=== PATIENT | male | born 1970 | race Caucasian/White ===

== ENCOUNTER 2018-03-01 05:51 | Inpatient (IN) ==
[2018-03-01] MEDS ORDERED: ceFAZolin 1 GM VIAL IV SCH (07:00)
[2018-03-01] MEDS ORDERED: 0.9 % SODIUM CHLORIDE 9 ML, KETOROLAC 30 MG, ROPIVACAINE HCL/PF 49.5 ML, EPINEPHrine 0.... IJ SCH (07:00)
[2018-03-01] MEDS ORDERED: ROPIVACAINE HCL/PF 20 ML VIAL IJ ONE (07:50)
[2018-03-01] MEDS ORDERED: PROPOFOL 200 MG/20 ML VIAL IV ONE (07:50)
[2018-03-01] MEDS ORDERED: MIDAZOLAM 5 MG/5 ML VIAL IV ONE (07:50)
[2018-03-01] MEDS ORDERED: DEXAMETHASONE 10 MG/ML VIAL IV ONE (07:50)
[2018-03-01] MEDS ORDERED: ONDANSETRON 4 MG/2 ML VIAL IV ONE (07:50)
[2018-03-01] MEDS ORDERED: LIDOCAINE HCL/PF 100 MG/5 ML SYRINGE IV ONE (07:50)
[2018-03-01] MEDS ORDERED: ePHEDrine 50 MG/ML AMPUL IV ONE (07:50)
[2018-03-01] MEDS ORDERED: TRANEXAMIC ACID 1,000 MG/10 ML VIAL IV ONE ×2 (07:50→10:26)
[2018-03-01] MEDS ORDERED: fentaNYL 250 MCG/5 ML VIAL IV ONE (07:50)
[2018-03-01] MEDS ORDERED: GLYCOPYRROLATE 0.2 MG/ML VIAL IV ONE (07:50)
[2018-03-01] MEDS ORDERED: GENTAMICIN SULFATE 800 MG/20 ML VIAL IR ONE (08:28)
[2018-03-01] MEDS ORDERED: FLUMAZENIL 0.1 MG/ML ML IV PRN (08:56)
[2018-03-01] MEDS ORDERED: ONDANSETRON 4 MG/2 ML VIAL IV PRN (08:56)
[2018-03-01] MEDS ORDERED: ACETAMINOPHEN 1,000 MG/100 ML BOTTLE IV ONE (08:56)
[2018-03-01] MEDS ORDERED: PROMETHAZINE 25 MG/ML VIAL IV PRN (08:56)
[2018-03-01] MEDS ORDERED: NALOXONE HCL 0.4 MG/ML VIAL IV PRN (08:56)
[2018-03-01] MEDS ORDERED: LACTATED RINGERS 250 ML IV PRN (08:56)
[2018-03-01] MEDS ORDERED: diphenhydrAMINE 50 MG/ML VIAL IV PRN (08:56)
[2018-03-01] MEDS ORDERED: MEPERIDINE 25 MG/ML SYRINGE IV PRN (08:56)
[2018-03-01] MEDS ORDERED: BENZOCAINE/MENTHOL 1 LOZENGE PO PRN ×2 (08:56→10:26)
[2018-03-01] MEDS ORDERED: IPRATROPIUM/ALBUTEROL 3 ML AMPUL.NEB NEB PRN (08:56)
[2018-03-01] MEDS ORDERED: LACTATED RINGERS 1,000 ML IV SCH (09:00)
[2018-03-01] MEDS ORDERED: FLEETS ADULT ENEMA PR PRN (10:26)
[2018-03-01] MEDS ORDERED: POLYETHYLENE GLYCOL 3350 17 GM PACKET PO PRN (10:26)
[2018-03-01] MEDS ORDERED: BISACODYL 10 MG SUPP.RECT PR PRN (10:26)
[2018-03-01] MEDS ORDERED: MAGNESIUM HYDROXIDE 30 ML ORAL.SUSP PO PRN (10:26)
[2018-03-01] MEDS ORDERED: HYDROcodone/APAP 10/325MG TABLET PO PRN (10:29)
[2018-03-01] MEDS: fentaNYL 100 MCG/2 ML VIAL IV PRN ×3 (10:33→10:50)
--- NOTE | 2018-03-01 10:33 | Brief Operative Note ---
Date of procedure: 03/01/18 Pre-op diagnosis: DJD right knee Post-op diagnosis: same Procedure: TKR right Grafts/Implants: Yes (Yadav and nephew XR ) Anesthesia: GETA Surgeon: Desean Taveras Equipment Service Engineer: Johnny Hayward Estimated blood loss (cc): 100 Tourniquet Time (Minutes): 85 Specimens Removed/Pathology: none sent Condition: stable Disposition: PACU
[2018-03-01] MEDS: HYDROmorphone 2 MG/ML VIAL IV PRN ×2 (11:00→11:16)
--- NOTE | 2018-03-01 11:04 | Operative Note ---
DATE OF OPERATION: 03/01/2018 PREOPERATIVE DIAGNOSIS: Degenerative joint disease of the right knee. POSTOPERATIVE DIAGNOSIS: Degenerative joint disease of the right knee. OPERATION: Right total knee replacement. SURGEON: Desean Taveras M.D. MIND READER: Lencho Hayward R.N. ANESTHESIA: General done by Liam Frey CRNA. TOURNIQUET TIME: 85 minutes. SUMMARY OF PROCEDURE: General anesthesia was attained. The right leg was prepped and draped. An incision was made from the quadriceps tendon to the tibial tubercle. This was taken down sharply to the quadriceps and medial retinaculum. A midvastus approach was used. This was done about 1-inch above the patella where I split the vastus for about an inch diagonally. The quadriceps was split distal as was the medial retinaculum. A medial release was done. The anterior menisci resected. The fat pad was debrided. The ACL was preserved. The knee was flexed. The intramedullary canal of the femur was drilled and then reamed. The distal cutting guide was placed. The distal femur was cut. The knee was brought into full extension. The marker on the tibia was used to sherri the level of the tibial cut. The femur was next sized. It sized to a 7. The anterior, posterior and bevel cuts were made. The tibia was next addressed. The external guide was used, and the cut was set to be 6 to 7 mm below the high point medially. The notch pins were used and the notch cutting guide was used. The notch area was preserved and the sagittal cuts were made. The medial cut was then made resecting the medial compartment of the tibia. The femoral trial was then placed onto the femur. I then placed an 8 mm insert and a 6 trial. We got excellent range of motion and stability with the 8 mm insert. The lateral cutting guide was then placed. The lateral cut was made. I next used the datum and the notch cutting guide to cut the notch area and preserve the ACL and the PCL. We then trialed the tibia and a 5 was the best fit while preserving the ACL. This was prepared with the guide system and appropriate broaches. The patella was everted. It was a 25 mm in thickness, and I cut down to 15. This was rechecked using a caliper. The patella sized to a 32. An eccentric anatomic patella was used. The excess bone which was minimal was removed with a saw laterally. Trials were placed. The no-touch test showed a lateral release was not needed. The bone surfaces were thoroughly irrigated. The knee was injected throughout with a multimodal solution. The components were next cemented in. Care was taken to protect the ACL while the cement hardened in extension. Excess cement was removed. The tourniquet was let down. All bleeding points were coagulated. The quadriceps and medial retinaculum were closed with [id number] sutures of #2 FiberWire. The distal retinaculum was closed with a running 0 Maxon. The subcutaneous tissue was closed with interrupted buried 2-0 Monocryl. The skin was closed with austen. A sterile compressive dressing was applied. The sponge and needle count was correct. The patient tolerated the procedure well and was taken to the recovery room in stable condition. TJF:elisa Job ID: [id number] Doc ID: [id number] Desean HENDERSON
[2018-03-01] MEDS: 0.9 % SODIUM CHLORIDE 1,000 ML IV SCH ×2 (12:08→19:43)
--- NOTE | 2018-03-01 12:30 | XRay Report ---
CLINICAL INFORMATION: Post-op total knee. COMPARISON: None. FINDINGS: Total knee prostheses is anatomically aligned. No osseous abnormalities. Periarticular gas and soft tissue swelling seen as expected IMPRESSION: Negative Interpreted and Authenticated by: Christiano Pineda 03/01/18
[2018-03-01] MEDS ORDERED: WARFARIN 7.5 MG TABLET PO SCH (14:00)
[2018-03-01] MEDS: 0.9 % SODIUM CHLORIDE 10 ML SYRINGE IV SCH ×2 (14:21→21:16)
[2018-03-01] MEDS: ONDANSETRON 4 MG/2 ML VIAL IV PRN ×2 (14:26→19:08)
[2018-03-01] MEDS: ceFAZolin 1 GM VIAL IV SCH ×2 (15:54→23:06)
[2018-03-01] MEDS ORDERED: oxyCODONE HCL 5 MG TABLET PO PRN (16:57)
[2018-03-01] MEDS: oxyCODONE/APAP 5/325MG TABLET PO PRN ×2 (19:48→21:58)
[2018-03-01] MEDS ORDERED: DOCUSATE SODIUM 100 MG CAPSULE PO SCH (21:00)
[2018-03-01] MEDS ORDERED: SENNOSIDES 1 TABLET PO SCH (21:00)
[2018-03-01] MEDS ORDERED: METOPROLOL TARTRATE 50 MG TABLET PO SCH (21:00)
[2018-03-01] MEDS ORDERED: ENOXAPARIN 30 MG/0.3 ML SYRINGE SQ SCH (21:00)
[2018-03-02] MEDS: oxyCODONE/APAP 5/325MG TABLET PO PRN ×2 (00:25→05:45)
[2018-03-02] MEDS: 0.9 % SODIUM CHLORIDE 10 ML SYRINGE IV SCH (04:31)
[2018-03-02] MEDS: 0.9 % SODIUM CHLORIDE 1,000 ML IV SCH (04:52)
[2018-03-02] MEDS ORDERED: OMEPRAZOLE 20 MG CAPSULE PO SCH (07:30)
[2018-03-02] MEDS ORDERED: ASPIRIN 81 MG TAB.CHEW CHEWED ONE ×2 (08:40→08:47)
[2018-03-02] MEDS ORDERED: NITROGLYCERIN 0.4 MG TAB.SUBL SL PRN ×2 (08:40→08:47)
[2018-03-02] MEDS ORDERED: 0.9 % SODIUM CHLORIDE 1,000 ML IV SCH (08:45)
--- NOTE | 2018-03-02 08:48 | Orthopedic Progress Note ---
Subjective Patient information: Note initiated : 03/02/18 at 8:44 am Service Date, if different from initiated Date: [] Patient: Miles Cuellar 47 y/o M admitted on 03/01/18 for Total Knee Arthroplasty - Right. Chief Complaint: [POD #1 s/p At present patient is having active heart attack at [facility]. 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 Dr. Benitez is on site and confirmed ST elevation on present EKG compared to preop EKG. During my bedside eval he was in no pain, had no chest pain or shortness of breath. He was up and ambulating with Alfie PT without difficulty. He had no numbness, tingling, chest pain or shortness of breath.] Objective Vital signs: Vital Signs Temp Pulse Resp BP Pulse Ox 03/02/18 06:42 97.6 F 20 107/64 93 03/02/18 04:00 97.8 F 68 20 114/68 92 03/01/18 23:10 97.6 F 75 18 109/72 95 03/01/18 21:12 98.9 F 91 H 18 120/78 95 03/01/18 14:24 129/69 92 03/01/18 13:22 103/65 95 03/01/18 12:52 115/74 97 03/01/18 12:22 116/79 97 03/01/18 12:07 115/84 97 03/01/18 11:52 118/82 97 03/01/18 11:29 97.0 F 70 14 118/81 97 03/01/18 11:20 97.0 F 73 16 122/84 98 03/01/18 11:00 97.0 F 78 18 124/89 98 03/01/18 10:46 97.0 F 68 18 126/84 98 03/01/18 10:41 97.6 F 66 16 119/86 98 03/01/18 10:36 97.5 F 78 14 114/82 98 03/01/18 10:31 97.4 F 76 16 132/85 97 03/01/18 10:26 97.5 F 87 18 179/94 98 03/01/18 10:21 97.3 F 94 H 14 132/96 94 Intake and Output 10/05/18 10/06/18 10/06/18 21:59 05:59 13:59 Intake Total 1400 / 1400 2225 / 2225 Output Total 1100 / 1100 1275 / 1275 Balance 300 / 300 950 / 950 Intake: IV 1000 / 1000 Sodium Chloride 0.9% 1,000 ml @ 1000 / 1000 100 mls/hr IV .Q10H SHRAVAN Rx#: [id number] Oral 1400 / 1400 1225 / 1225 Output: Void Amount 1100 / 1100 1275 / 1275 Other: Meal Dinner Percent of Meal Consumed 100% Feeding Ability Independent Urine Appearance Clear Clear Urine Color Bright Yellow Pale Urine Odor Normal Normal # Voids 1 Weight 242 lb Intake & Output: Intake & Output 03/01/18 03/02/18 03/02/18 21:59 05:59 13:59 Intake Total 1400 / 1400 2225 / 2225 Output Total 1100 / 1100 1275 / 1275 Balance 300 / 300 950 / 950 Weight 242 lb Intake: IV 1000 / 1000 Sodium Chloride 0.9% 1,000 ml @ 1000 / 1000 100 mls/hr IV .Q10H SHRAVAN Rx#: [id number] Oral 1400 / 1400 1225 / 1225 Output: Void Amount 1100 / 1100 1275 / 1275 Other: Meal Dinner Percent of Meal Consumed 100% Feeding Ability Independent Urine Appearance Clear Clear Urine Color Bright Yellow Pale Urine Odor Normal Normal # Voids 1 Incision: Yes healing, No draining, No red, No swollen, No inflamed, Yes clean and dry Incision clean and dry: Yes Dressing: Yes clean, Yes dry, Yes intact Weight bearing status: as tolerated Neurological exam IM: Yes alert, Yes oriented X3, Yes motor sensory intact, Yes neurovascular intact Extremities exam IM: No calf tenderness, Yes normal capillary refill, Yes Foot pink and warm, Yes neurovascular intact - Periperhal Pulses Peripheral pulses: 2+: dorsalis pedis (L), dorsalis pedis (R), posterior tibialis (L), posterior tibialis (R) - Labs CBC & BMP: 03/02/18 05:22 Labs: Orthopedic Labs 03/02/18 05:22 PT 13.4 INR 1.0 03/02/18 05:22 Hgb 12.7 L Hct 38.9 L Assessment and Plan (1) Knee osteoarthritis POD #1 s/p right TKA: -having active STEMI, being transferred to [facility] for immediate intervention -will finalize post op ortho orders to transfer with him Status: Acute
[2018-03-02] MEDS ORDERED: NITROGLYCERIN 0.4 MG TAB.SUBL SL ONE (08:49)
[2018-03-02] MEDS ORDERED: ASPIRIN 325 MG ENTERIC COATED TABLET PO ONE (08:50)
[2018-03-02] MEDS ORDERED: ASPIRIN 81 MG TAB.CHEW ONE (08:53)
--- NOTE | 2018-03-02 08:54 | Discharge Summary ---
Ortho Discharge - TKA - Patient Instructions Diet: Regular Diet Activity: weight bearing as tolerated Total Knee Protocol: For Total Knee: Start ROM LOIS with stationary bike or rocking chair. Work on gaining full extension of knee. Posterior dislocation precautions provided. Hip abductor strengthening and gait training instructions provided. Apply Cryocuff as instructed. Dressing Care: Aquacel Ag - leave on for 5 days - Problem Maintenance (1) Knee osteoarthritis Status: Acute - Follow Up Plan Follow Up Appointments: Desean Taveras MD [Physician] - (in 10-14 days) Disposition: Xfer Other Prognosis: Critical Overall status at discharge: other (STEMI at [facility], transferring to [facility]) - Orders For Discharge Prescriptions: Enoxaparin [Lovenox] 30 mg SQ BID #6 syringe oxyCODONE/APAP [Percocet 5-325 mg] 1 - 2 tab PO Q4HP PRN #50 tab PRN Reason: Pain Level 3-6 Additional Discharge Orders: Physical Therapy at Discharge - TKA Location: None Selected Walker Location: None Selected
[2018-03-02] MEDS ORDERED: NITROGLYCERIN/D5W 250 ML IV ONE (08:56)
[2018-03-02] MEDS ORDERED: METOPROLOL TARTRATE 5 MG/5 ML VIAL IV ONE (08:59)
[2018-03-02] MEDS ORDERED: LISINOPRIL 20 MG TABLET PO SCH (09:00)
[2018-03-02] MEDS ORDERED: HYDROCHLOROTHIAZIDE 25 MG TABLET PO SCH (09:00)
[2018-03-02] MEDS: METOPROLOL TARTRATE 5 MG/5 ML VIAL IV SCH ×3 (09:01→15:11)
[2018-03-02] MEDS ORDERED: HEPARIN 5,000 UNIT/ML VIAL IV ONE (09:01)
--- NOTE | 2018-03-02 09:01 | Discharge Summary ---
Providers - Providers Patient information: Note initiated : 03/02/18 at 8:59 am Service Date, if different from initiated Date: [] Patient: Miles Cuellar 47 y/o M admitted on 03/01/18 for Total Knee Arthroplasty - Right. Chief Complaint: [POD #1 s/p right TKA Having active STEMI in hospital this morning. Prior to event, patient was ambulating without difficulty or concern. Had no chest pain, shortness of breath , numbness or tingling. Hospitalist responding to code white- found to have active STEMI] Discharge date: 03/02/18 Hospitalization Hospital course: Patient was brought to OR yesterday for right TKA with Dr. Taveras on 03/01/18 which was without complication. He was admitted overnight for post operative management and care. This morning he began having a STEMI which Dr. Benitez responded to. He has a history of a mechanical valve. Dr. Benitez initiated the transfer to the mold tooler at [facility] for emergent intervention. Discharge diagnosis: knee osteoarthritis Secondary discharge diagnosis: STEMI Exam - Exam Incision healing: Yes Incision draining: No Incision red: No Incision swollen: No Incision inflamed: No Clean and dry: Yes Weight bearing status: as tolerated Ortho Discharge - TKA - Patient Instructions Diet: Regular Diet Activity: weight bearing as tolerated Total Knee Protocol: For Total Knee: Start ROM LOIS with stationary bike or rocking chair. Work on gaining full extension of knee. Posterior dislocation precautions provided. Hip abductor strengthening and gait training instructions provided. Apply Cryocuff as instructed. Dressing Care: Aquacel Ag - leave on for 5 days - Problem Maintenance (1) Knee osteoarthritis Status: Acute - Follow Up Plan Follow Up Appointments: Desean Taveras MD [Physician] - (in 10-14 days) Disposition: Xfer Other Prognosis: Critical Rehab Potential: Undetermined - Orders For Discharge Prescriptions: Enoxaparin [Lovenox] 30 mg SQ BID #6 syringe oxyCODONE/APAP [Percocet 5-325 mg] 1 - 2 tab PO Q4HP PRN #50 tab PRN Reason: Pain Level 3-6 Additional Discharge Orders: Physical Therapy at Discharge - TKA Location: None Selected Walker Location: None Selected Pending Studies Resuscitation Status Full Code Diet Regular Diet Start Sun 5 1257 Docusate Sodium (Colace) 100 mg PO BID SHRAVAN Last Admin: 03/01/18 21:15 Dose: 100 mg Enoxaparin Sodium (Lovenox) 30 mg SQ BID [facility] Last Admin: 03/01/18 21:15 Dose: 30 mg Sodium Chloride (Sodium Chloride 0.9%) 1,000 mls @ 100 mls/hr IV .Q10H [facility] Last Admin: 03/02/18 04:52 Dose: Infusion: 03/02/18 00:30 Dose: 0 mls/hr Admin: 03/01/18 19:43 Dose: Not Given Admin: 03/01/18 12:08 Dose: 100 mls/hr Metoprolol Tartrate (Lopressor) 100 mg PO BID [facility] Last Admin: 03/01/18 21:15 Dose: 100 mg Morphine Sulfate (Morphine) 0 mg IV Q1HP PRN PRN Reason: PAIN LEVEL > 6 Last Admin: 03/02/18 01:18 Dose: 4 mg Admin: 03/01/18 21:16 Dose: 4 mg Admin: 03/01/18 19:08 Dose: 4 mg Admin: 03/01/18 15:52 Dose: 4 mg Admin: 03/01/18 12:00 Dose: 4 mg Omeprazole (Prilosec) 20 mg PO ACB [facility] Last Admin: 03/02/18 08:05 Dose: 20 mg Ondansetron HCl (Zofran) 4 mg IV Q4HP PRN PRN Reason: Nausea And Vomiting Last Admin: 03/01/18 19:08 Dose: 4 mg Admin: 03/01/18 14:26 Dose: 4 mg Oxycodone/Acetaminophen (Percocet 5-325 Mg) 1 - 2 tab PO Q4HP PRN PRN Reason: PAIN LEVEL 3-6 Last Admin: 03/02/18 05:45 Dose: 1 tab Admin: 03/02/18 00:25 Dose: 1 tab Admin: 03/01/18 21:58 Dose: 1 tab Admin: 03/01/18 19:48 Dose: 1 tab Senna (Senokot) 2 tab PO HS [facility] Last Admin: 03/01/18 21:15 Dose: 2 tab Sodium Chloride (Saline Flush) 10 ml IV Q8 [facility] Last Admin: 03/02/18 04:31 Dose: 10 ml Admin: 03/01/18 21:16 Dose: Not Given Admin: 03/01/18 14:21 Dose: Not Given Warfarin Sodium (Coumadin) 7.5 mg PO Tiffany@1400 [facility] Last Admin: 03/01/18 14:20 Dose: 7.5 mg Shift Summary 03/02/18 04:44 Shift Summary by Yvan Kwon on RA. Dressing to right knee CDI. No complaints of numbness or tingling. Up w/SBA and FWW. Ambulated in halls and in room t/o night. Steady on feet. Voiding per urinal. IV to left FA SL. Hx of nausea and emesis after taking PO narcotics. No c/o nausea this shift, has been getting 1 percocet q2h, however this does not appear to be an adequate dose for pain control but pt refuses to take more than 1 pill at a time. 4mg IV morphine administered x3. Cryocuff on t/ o night. Refused foot pumps @ HS stating he could not sleep w/them on. Tolerated fine when awake. IS up to 4,000. at bedside t/o night. Uses call light frequently. Pleasant and cooperative w/cares. Initialized on 03/02/18 04:44 - END OF NOTE
[2018-03-02] MEDS ORDERED: HEPARIN/D5W 500 ML IV ONE (09:14)
[2018-03-02] MEDS ORDERED: HEPARIN/D5W 25,000 UNIT in PREMIX 1 BAG IV SCH (09:15)
--- NOTE | 2018-03-02 09:26 | Internal Medicine Consult Note ---
Medical - CN: HPI - Data of Consult Consult date: 03/02/18 Requesting Physician: Desean Taveras Primary Care Provider: Wade Meyer - Consult Narrative Reason for consult: Chest pain History of present illness: Mr. Cuellar is a 47 year old M with h/o Severe aortic stenosis, [facility]. The patient had a cardiac cath, which shows normal LAD, 30% lesion in LCA. The patient was admitted to the hospital by Dr Taveras, for Right total knee replacement which was done yesterday, 03/01/18, the patient was doing well untill this AM. She was seen on rounds by ortho and was doing well The patient this AM suddently started to complain about acute onset chest pain, very severe, radiating down his ARM<, the patient was in visible distress and a code white/ Rapid response was called in, this is how I was involved in the case. The patient was clutching his chest and in significant distress on evaluation. EKG done stat showed ST elevation in leads 1, avl, v1,v4, ST depression Lead 3 and avf, This is new comparison to pre op ekg The patient received asa, morphine, sl nitro and then started on nitro drip, metoprolol 5mg x 1, machine welder oncall at [facility] called, and he advised starting pt on hep bolus and ggt, which was initiated. patient was transferred to the [facility] for emergent Cath. Family by the bedside updated. pt was still having chest pains, at the time of discharge. CC: Desean Taveras All systems: reviewed and no additional remarkable complaints except as stated ( limited ROS given acuity of condition. chest pain present.) Medical - CN: PMH Medical history: Medical History Gastroenteritis (Acute) Gastroenteritis (Acute) Shingles outbreak (Acute) CAD [facility] aortic valve Surgical history: right knee tka Pertinent family history: h/o mi in family as per chart review Medical - CN: Meds Home Medications Medication Instructions Recorded Confirmed Type Enoxaparin [Lovenox] 150 mg SQ DAILY 02/21/18 03/01/18 History HYDROcodone/APAP 10/325MG [[place] 1 - 2 tab PO Q4H PRN 02/21/18 03/01/18 History 10-325Mg] Hydrochlorothiazide [Oretic] 25 mg PO DAILY 02/21/18 03/01/18 History Lisinopril [Zestril] 20 mg PO DAILY 02/21/18 03/01/18 History Metoprolol Tartrate [Lopressor] 100 mg PO BID 02/21/18 03/01/18 History Omeprazole [PriLOSEC] 20 mg PO ACB 02/21/18 03/01/18 History Warfarin [Coumadin] 7.5 mg PO SUMOTUWEFRSA 02/21/18 03/01/18 History Warfarin [Coumadin] 10 mg PO TH 02/21/18 03/01/18 History Enoxaparin [Lovenox] 30 mg SQ BID #6 syringe 03/02/18 Rx oxyCODONE/APAP [Percocet 5-325 mg] 1 - 2 tab PO Q4HP PRN #50 tab 03/02/18 Rx Allergies Allergy/AdvReac Type Severity Reaction Status Date / Time No Known Drug Allergies Allergy Verified 03/01/18 06:13 Medical - CN: Exam - Constitutional Vitals: Temp Pulse Resp BP Pulse Ox 97.6 F 68 20 107/64 94 03/02/18 06:42 03/02/18 04:00 03/02/18 06:42 03/02/18 06:42 03/02/18 08:59 Exam: Constitutional; Afebrile, cooperative, alert, in acute distress, cold clamy extremities. Eyes- No icterus, , No periorbital swelling Ears- Ext ear normal, hearing normal to conversation. Neck- Midline trachea, supple Respiratory system: Air Entry equal on both sides, No crackles or wheezing, no rhonchi. CVS- Rate tachcyardic, rhythm regular, S1,S2 heard, no gallop, no rub. pt was crying with pain during exam, unable to hear the cardiac sounds properly. Abdomen- Soft nontender abdomen, no organomegaly, no tenderness, no guarding or rigidity, ETHNOARCHAEOLOGY PROFESSOR- AOOx3, moving all extremities, no gross focal deficit noted. Medical - CN: Result - Labs CBC & Chem 7: 03/02/18 08:49 03/02/18 08:49 Labs: Short CBC 03/02/18 Range/Units 05:22 Hgb 12.7 L (13.5-16.5) g/dL Hct 38.9 L (41.0-55.0) % Medical - CN: A/P - Narrative A/P Narrative: A/P Acute STEMI- ANterolateral leads, his cath done 1 yr ago did not show significant lesion,s Pt has mechanical valves, The patient was on 150mg daily lovenox bridge before surgery(based on chart home med list and by talking to the staff I was unable to verify this history with pt or the family as they had left ), that the patient took lovenox night, and his surgery was postponed from to Sunday, I am presuming he did not take lovenox on . The patient had surgery ,and was restarted on lovenox 30bid, dose given at sunday night (last night) Pt INR this AM Was 1.0, Pt is tranferred to cardiac laborer [employer] [facility], Craig Gonzales accepting physician. Social History - Tobacco smoking status: Former smoker
[2018-03-02 09:30] LABS: Basophils # (Auto) 0.1 K/mcL (0.0-0.3); Basophils % (Auto) 0.4 % (0.0-2.0); Eosinophils # (Auto) 0 K/mcL (0.0-0.7); Eosinophils % (Auto) 0.1 % (0.0-7.0); Granulocytes % (Auto) 79.4 % (38.0-78.0); Lymphocytes # (Auto) 1.9 K/mcL (1.5-4.8); Lymphocytes % (Auto) 10.9 % (15.5-49.0); Mean Cell Volume 87.2 fL (80.0-100.0); Mean Corpuscular HGB Conc 32.5 g/dL (31.0-36.0); Mean Corpuscular Hemoglobin 28.4 pg (26.0-34.0); Monocytes # (Auto) 1.6 K/mcL (0.1-0.9); Monocytes % (Auto) 9.2 % (1.0-12.0); Platelet Count 254 K/mcL (140-440); RBC 4.65 M/mcL (4.50-5.90); Red Cell Distribution Width 14.6 % (11.5-14.5)
[2018-03-02 09:41] LABS: ALT/SGPT 31 U/l (0-40); Albumin 3.1 gm/dL (3.2-5.2); Alkaline Phosphatase 70 U/L (39-117); Blood Urea Nitrogen 16 mg/dl (6-20); Creatine Kinase 238 IU/L (24-195)
[2018-03-07] MEDS ORDERED: WARFARIN 10 MG TABLET PO SCH (14:00)
== END 2018-03-02 09:22 | disposition other institution (70) | DRG 469 ==
LOC: MEDSUR 05:51
PROVIDERS: ADMIT Orthopaedic Surgery Foot and Ankle Surgery; ATTEND Orthopaedic Surgery Foot and Ankle Surgery
CPT/HCPCS: 97161; 99223; C1713; C1776; J0131; J0171; J0690; J1100; J1170; J1580; J1644; J1650; J1885; J2001; J2250; J2270; J2405; J2795; J3010; J7030; J7050; J7120